=== PATIENT | female | born 1970 | race Caucasian/White ===

== ENCOUNTER → 2020-10-30 | Outpatient (CLI) | payer OTHER | END | disposition home or self-care (01) | LOC: MAMMO 16:13 | PROVIDERS: ATTEND Obstetrics & Gynecology | DX: Z12.31 Encounter for screening mammogram for malignant neoplasm of breast (principal) ==

== ENCOUNTER → 2022-01-23 | Outpatient (CLI) | payer OTHER ==
[2022-01-23 09:21] LABS: BUN 12 mg/dl (7-24); CHLORIDE 112 mmol/L (98-107); CREATININE 0.58 mg/dL (0.55-1.02); POTASSIUM 5.1 mmol/L (3.5-5.1); SGOT/AST 17 IU/L (3-35); SGPT/ALT 32 U/L (12-78); SODIUM 142 mmol/L (136-145)
[2022-01-23 09:23] LABS: ALKALINE PHOSPHATASE 92 U/L (45-117); TOTAL PROTEIN 6.8 gm/dL (6.4-8.2)
== END | disposition home or self-care (01) ==
LOC: LAB 08:44
PROVIDERS: ATTEND Physician Assistant Medical
DX: E87.5 Hyperkalemia (principal); R79.89 Other specified abnormal findings of blood chemistry

== ENCOUNTER → 2022-02-06 | Outpatient (CLI) | payer OTHER | END | disposition home or self-care (01) | LOC: CT 01-30 11:00 | PROVIDERS: ATTEND Urology | DX: N13.39 Other hydronephrosis (principal); K57.90 Diverticulosis of intestine, part unspecified, without perforation or abscess without bleeding ==

== ENCOUNTER → 2022-05-29 | Outpatient (CLI) | payer OTHER | END | disposition home or self-care (01) | LOC: MAMMO 04-15 15:30 | PROVIDERS: ATTEND Nurse Practitioner | DX: Z12.31 Encounter for screening mammogram for malignant neoplasm of breast (principal) ==